=== PATIENT | male | born 1985 | race Caucasian/White ===

== ENCOUNTER 2017-07-20 18:47 | Inpatient (IN) ==
[2017-07-20] MEDS ORDERED: CLINDAMYCIN INJ 600 MG in PREMIX 1 EACH IV STA (18:58)
[2017-07-20] MEDS ORDERED: LACTATED RINGERS 1,000 ML IV STA (18:58)
[2017-07-20] MEDS ORDERED: DIPH/TET/ACEL PERT BOOSTER VACCINE 0.5 ML VIAL IM ONE ×2 (18:58→19:39)
[2017-07-20 19:13] LABS: Basophils # 0.1 10*3/uL (0.0-0.2); Basophils % 0.9 % (0.0-0.8); Eosinophils # 0.9 10*3/uL (0.0-0.87); Eosinophils % 11.1 % (0.00-10.9); Hematocrit 46.8 VOL% (42.0-52.0); Hemoglobin 16.3 GM/DL (14.0-18.0); Immature Granulocytes % 0.8 %; Immature Granulocytes Absolute 0.06 #; Lymphocytes # 2.5 10*3/uL (1.4-4.0); Lymphocytes % 32.3 % (21.2-54.2); Mean Corpuscular HGB Conc 34.8 GM/DL (32-36); Mean Corpuscular Hemoglobin 31 PG (27-34); Mean Corpuscular Volume 87.5 FL (87-102); Mean Platelet Volume 9.4 FL (9.6-12.0); Monocytes # 0.5 10*3/uL (0.11-0.8); Monocytes % 6.4 % (1.7-12.7); Neutrophils # 3.8 10*3/uL (1.4-7.4); Neutrophils % 48.5 % (38.7-73.9); Platelet Count 273 T/CUMM (130-400); Red Blood Count 5.35 MC/CUMM (3.8-5.5); Red Cell Distribution Width 13.5 % (9.3-17.3); White Blood Count 7.9 T/CUMM (4-12)
[2017-07-20 19:13] LABS: ABG Base Excess -5.6 MMOL/L (-2.5-2.5); ABG HCO3 19.1 MMOL/L (20-26); ABG Oxygen Saturation 95.4 % (95-100); ABG PCO2 34.9 MM HG (35-48); ABG PH 7.355 (7.35-7.45); ABG PO2 83.9 MM HG (80-95); ABG TCO2 20.1 MMOL/L (23-27)
[2017-07-20 19:14] LABS: Apearance,Urine Slightly Hazy (Clear); Bacteria,Urine Occasional /HPF (Few); Bilirubin,Urine Negative (Negative); Blood, Urine Negative (Negative); Glucose,Urine (UA) Negative (Negative); Ketones,Urine Negative (Negative); Mucus,Urine Few /LPF (Occasional); Nitrite,Urine Negative (Negative); Protein,Urine 100 MG/DL; RBC,Urine 1 /HPF (0-4); Squamous Epithelial Cell,Urine Occasional /HPF (0-10); Urine Color Yellow (Yellow); Urine Specific Gravity 1.014 (1.001-1.035); Urine Urobilinogen < 2.0 EU/DL (0.2-1.0); WBC,Urine 1 /HPF (0-6)
[2017-07-20 19:19] LABS: PT Patient Result 10.3 SECS; Partial Thromboplastin Time 25.2 SECS (0-40)
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
[2017-07-20 19:28] LABS: Albumin 3.5 G/DL (3.4-5.0); Bilirubin,Total 0.5 MG/DL (0.2-1.0); Calcium 8.4 MG/DL (8.5-10.1); Potassium 3.5 MMOL/L (3.5-5.1); Total Protein 6.9 G/DL (6.4-8.3)
[2017-07-20 19:30] LABS: Troponin I Only < 0.015 NG/ML (0.00-0.045)
[2017-07-20 19:39] LABS: Lactic Acid 3.1 MMOL/L (0.4-2.0)
[2017-07-20] MEDS ORDERED: CLINDAMYCIN INJ 50 ML IV ONE (19:39)
[2017-07-20 19:43] LABS: Barbiturates Screen,Urine Negative (Negative); Benzodiazepines Screen,Urine Negative (Negative); Cannabinoid Screen,Urine Negative (Negative); Opiate Screen,Urine Negative (Negative); Phencyclidine Screen,Urine Negative (Negative)
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
[2017-07-20 19:46] LABS: Eosinophils 11 % (0-10); Lymphocytes 38 % (20-55); Segmented Neutrophils 46 % (50-85); Total Cells Counted 100
[2017-07-20 19:47] LABS: Platelet Estimate Adequate; Poikilocytosis Slight; Tear Drop Cells Slight
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
--- NOTE | 2017-07-20 20:13 | XRay Report ---
Portable chest Exam date: 07/20/2017 6:59 PM Indication: Shortness of breath, cough Comparison: Not available Findings: Cardiomediastinal contours are normal. Lungs are clear bilaterally. No acute osseous abnormalities. Visualized upper abdomen demonstrates no acute pathology. Impression: Normal chest PROCEDURE INTERPRETED AT [facility] DEPARTMENT OF RADIOLOGY Final Report Signed by: Joelle Garcia MD
--- NOTE | 2017-07-20 20:31 | XRay Report ---
Exam: XR pelvis AP 1 or 2 Views Exam date: 07/20/2017 7:30 PM Indication: Hip and pelvic Pain, Comparison: No relevant comparisons Findings: Joint spaces well maintained. No fracture or dislocation. No joint effusion. Bony pelvis intact. No radiographic soft tissue abnormalities. Impression: Normal pelvis PROCEDURE INTERPRETED AT [facility] DEPARTMENT OF RADIOLOGY Final Report Signed by: Joelle Garcia MD
[2017-07-20] MEDS ORDERED: ACETAMINOPHEN 325 MG TABLET PO PRN (20:53)
[2017-07-20] MEDS ORDERED: ALBUTEROL/IPRATROPIUM 3 ML NEB RESP TX PRN (20:53)
[2017-07-20] MEDS ORDERED: ONDANSETRON 4 MG/2 ML VIAL IV PRN (20:53)
[2017-07-20] MEDS: LACTATED RINGERS 1,000 ML IV SCH (22:44)
[2017-07-20] MEDS: HYDROmorphone 2 MG/1 ML VIAL IV PRN (22:45)
[2017-07-21] MEDS: HYDROmorphone 2 MG/1 ML VIAL IV PRN (04:27)
[2017-07-21] MEDS: LACTATED RINGERS 1,000 ML IV SCH (06:22)
--- NOTE | 2017-07-21 07:14 | XRay Report ---
XR chest 2V Indication: Shortness of breath Comparison: 20 July 2017 Findings: The heart and mediastinum are normal in size and configuration. The pulmonary vascularity is normal in caliber. No lung infiltrates, effusions, pneumothorax or other abnormality is demonstrated. Impression: Normal chest x-ray PROCEDURE INTERPRETED AT [facility] DEPARTMENT OF RADIOLOGY Final Report Signed by: Dr. Dominic Johnson
[2017-07-21 07:16] LABS: Basophils % 0.3 % (0.0-0.8); Eosinophils # 0.8 10*3/uL (0.0-0.87); Eosinophils % 6.8 % (0.00-10.9); Hematocrit 41.7 VOL% (42.0-52.0); Hemoglobin 14.6 GM/DL (14.0-18.0); Immature Granulocytes % 0.4 %; Immature Granulocytes Absolute 0.05 #; Lymphocytes # 1.7 10*3/uL (1.4-4.0); Lymphocytes % 14.9 % (21.2-54.2); Mean Corpuscular Hemoglobin 31 PG (27-34); Mean Corpuscular Volume 88.5 FL (87-102); Mean Platelet Volume 10.1 FL (9.6-12.0); Monocytes % 9.3 % (1.7-12.7); Neutrophils # 7.6 10*3/uL (1.4-7.4); Neutrophils % 68.3 % (38.7-73.9); Platelet Count 252 T/CUMM (130-400); Red Blood Count 4.71 MC/CUMM (3.8-5.5); Red Cell Distribution Width 13.7 % (9.3-17.3); White Blood Count 11.2 T/CUMM (4-12)
[2017-07-21 07:41] LABS: Apearance,Urine CLEAR (Clear); Bacteria,Urine Occasional /HPF (Few); Bilirubin,Urine Negative (Negative); Blood, Urine Moderate mg/dL (Negative); Glucose,Urine (UA) Negative (Negative); Ketones,Urine Negative (Negative); Mucus,Urine Occasional /LPF (Occasional); Nitrite,Urine Negative (Negative); Protein,Urine Negative; RBC,Urine 22 /HPF (0-4); Urine Color Yellow (Yellow); Urine Specific Gravity 1.015 (1.001-1.035); Urine Urobilinogen < 2.0 EU/DL (0.2-1.0); WBC,Urine 9 /HPF (0-6)
[2017-07-21 07:47] LABS: Lactic Acid 1.4 MMOL/L (0.4-2.0)
[2017-07-21 07:49] LABS: Albumin 2.9 G/DL (3.4-5.0); Bilirubin,Total 0.7 MG/DL (0.2-1.0); Calcium 8.5 MG/DL (8.5-10.1); Magnesium 1.9 MG/DL (1.8-2.4); Osmolality,Calculated 285.6 MOS/KG (273-304); Potassium 3.5 MMOL/L (3.5-5.1); Total Protein 6.2 G/DL (6.4-8.3)
[2017-07-21] MEDS ORDERED: PANTOPRAZOLE 40 MG TABLET PO SCH (09:00)
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
[2017-07-21 12:25] VITALS: BP 138/86
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
== END 2017-07-21 13:08 | disposition home or self-care (01) | DRG 605 ==
LOC: N.ED 18:47 → N.EDINP 20:07 → N.4E 20:48
PROVIDERS: ADMIT Surgery; ATTEND Surgery